=== PATIENT | female | born 1955 | race African-American/Black ===

== ENCOUNTER 2020-12-09 14:05 | Emergency (ER) | payer MEDICARE, OTHER ==
[2020-12-09] MEDS ORDERED: Ibuprofen 200 MG TAB ONE (16:07)
== END 2020-12-09 16:19 | disposition home or self-care (01) ==
LOC: CSHERS 14:05
DX: H10.9 Unspecified conjunctivitis (principal); I10 Essential (primary) hypertension; Z79.82 Long term (current) use of aspirin
CPT/HCPCS: 99283